=== PATIENT | female | born 1965 | race Caucasian/White ===

== ENCOUNTER 2016-09-14 05:28 | Day surgery (SDC) | payer OTHER ==
[~2016-09-14] VITALS: Ht 162.6 cm; Wt 63.0 kg
--- NOTE | ~2016-09-14 | O ---
[facility] [place] [address] OPERATIVE REPORT Name: JAYDE DAS Room #: 423-1 [facility]#: [id number] Admission: 09/14/16 Attend Phys: Jose Linn MD Discharge: Date of : 61 Report #: [id number] THIS REPORT FOR: //name// CC: Lindsay Linn DATE OF SERVICE: 09/14/[address] Jose Linn, Dr. Shannan Tariq, Dr. Lindsay Stark, Dr. Kev Baugh. PREOPERATIVE DIAGNOSES: Cholelithiasis, cholecystitis, biliary colic. POSTOPERATIVE DIAGNOSES: Cholelithiasis, cholecystitis, biliary colic. PROCEDURE: Laparoscopic cholecystectomy. SURGEON: Jose Linn M.D. UTILIZATION REVIEW NURSE: Duyen Barrios RN. ANESTHESIA: General. DESCRIPTION OF PROCEDURE: The patient was brought to the operating room and placed on operative table in the supine position. Sequential compression devices were in place for DVT prophylaxis. She was given an appropriate preoperative dose of antibiotics. The patient underwent a general endotracheal anesthesia. The abdomen was then prepped and draped in a sterile fashion. Skin and subcutaneous tissue around the umbilicus was then infiltrated with 0.5% Marcaine. An infraumbilical transverse skin incision was then performed using #11 scalpel blade. Hemostasis obtained using electrocautery. Dissection was carried down through subcutaneous tissue, the fascia, which was then grasped between 2 Kingsley clamps and incised with a curved Suero scissors. The peritoneum was entered and a pursestring suture of 0 Vicryl was then placed in the fascia. A 12 mm disposable Alyssa port was then inserted through the opening and held into place with the pursestring suture and the port balloon. Pneumoperitoneum was obtained to a level of 10-15 mmHg. Laparoscope was inserted through this port and exploration was performed, which revealed a subacutely and chronically thickened dilated gallbladder with multiple stones. An exploration of the pelvis was performed, which revealed essentially normal uterus. Both ovaries were visualized and appeared normal. The right tube had some changes from previous tubal . No real obvious endometriosis in the pelvis. Small bowel and colon that could be visualized was essentially unremarkable. Appendix [address] [address] OPERATIVE REPORT Name: JAYDE DAS Room #: 423-1 [facility]#: [id number] Admission: 09/14/16 Attend Phys: Jose Linn MD Discharge: Date of : 61 Report #: [id number] was visualized and was also normal. Liver appeared normal. After completing the exploration, 2 lateral 5 mm Surgiport as well as an upper midline 11 mm Surgiport were all inserted under direct visualization after infiltration with 0.5% Marcaine. I attempted to grasp the gallbladder, but it was so thickened and dilated, I could not place a grasper on it. I then opted to decompress the gallbladder using the needle. I aspirated approximately 120 mL of white bile. This represented a complete obstruction of the cystic duct. After the gallbladder was decompressed, it was then able to be grasped and retracted superiorly. Adhesions around the cystic duct and cystic artery were carefully dissected free using the [place] dissector. I carefully identified the cystic artery and cystic duct and the cystic common bile duct junction was clearly identified. Cystic artery was doubly clipped on each side and divided with the scissors. There was a small accessory vein. This was clipped on each side and divided with the scissors. The cystic duct was then triply clipped on the common bile duct side and doubly clipped on the gallbladder side and divided with the scissors. Gallbladder was then dissected free from the bed using the hook electrocautery. Prior to completing the dissection, the gallbladder was retracted superiorly and the bed inspected for hemostasis, which was obtained using electrocautery and found to be intact. The gallbladder was then transected and brought out through the periumbilical port. There were numerous stones within the gallbladder with a very thickened wall. Stones and gallbladder were then sent as specimen to pathology. The port was then returned to the abdomen. The area was then copiously irrigated with warm saline solution, which was suctioned free. The hemostasis was checked and found to be intact. Ports were all removed under direct visualization, hemostasis intact at each port site. Pneumoperitoneum was released and periumbilical port was then also removed under direct visualization, hemostasis intact at that port site as well. Periumbilical fascia was then closed using the 0 Vicryl pursestring suture. The upper midline fascia was then closed using a [id number]-yu-[id number] 0 Vicryl suture. Skin was then closed using interrupted vertical mattress 5-0 nylon sutures and the wound was dressed with Band-Aids. The patient was then awakened from the general endotracheal anesthesia, extubated, and taken to recovery room in good condition. Estimated blood loss was approximately 10 mL and the patient tolerated procedure well. All sponge, lap and instrument counts correct times 2. <ELECTRONICALLY SIGNED> By: Jose Linn MD 09/14/16 [id number] [id number] Jose Linn MD /nt
--- NOTE | ~2016-09-14 | S ---
[facility] [place] [address] SURGICAL PATH RPT PROCEDURE Name: SOCORRO GUILLERMO Room #: DEP [facility] M..#: [id number] Admission: 09/14/16 Date of : 61 Discharge: 09/14/16 Report #: [id number] Path Case #: [id number] PATHOLOGY REPORT COLLECTION DATE: 09/14/2016 RECEIVED DATE: 09/14/2016 SUBMITTING PHYS: Dr. Jose Linn OTHER PHYS: Dr. Shannan Tariq SPECIMEN(S) RECEIVED: A.Gallbladder * * * * * * * * * * * * FINAL DIAGNOSIS: "Gallbladder," cholecystectomy: - Chronic cholecystitis. - Cholelithiasis. (CLW:; d/t: 09/16/16) PATHOLOGIST: Lisa Martinez M.D. REPORT ELECTRONICALLY SIGNED BY: Lisa Martinez M.D. DATE/TIME: 09/16/2016 21:51 * * * * * * * * * * * * GROSS PATHOLOGY: Received in formalin labeled "Socorro Guillermo gallbladder," is a 12.2 x 3.2 x 1.8 cm, previously opened gallbladder with pink-ballesteros serosal surfaces. Opening the gallbladder reveals a velvety, pink-judd mucosa and an average wall thickness of 0.1 cm. Calculi are present displaying a ballesteros-judd, split yellow-judd, chalky appearance, and no masses are noted grossly. Train Examiner sections from the body and fundus are submitted along with the proximal margin in cassette A1. (CAA; 09/15/2016) CLINICAL HISTORY: Gallstones, cholelithiasis, cholecystitis INITIAL CPT CODE(S): A; 91098 Professional services performed by [facility] at [facility] [address], [place] [address] Technical services performed by [facility] at [address] [place] [address]. [facility] [address] [place] [address] SURGICAL PATH RPT PROCEDURE Name: SOCORRO GUILLERMO Room #: DEP [facility].#: [id number] Admission: 09/14/16 Date of : 61 Discharge: 09/14/16 Report #: [id number] Path Case #: [id number] [facility] [address] [address] PHONE: [phone] DIRECTOR: Hamzah Mcelroy M.D. * * * END OF REPORT * * *
[~2016-09-14 05:28] MED LIST: ASPIR 8181 MG PO; DULCOLAX5 MG PO; METAMUCIL PAC1 UDPKT PO; NOLVADEX20 MG PO; NORCO 5-325 TA1 EACH PO; REQUIP 0.25 M0.25 MG PO; STOOL SOFTENER100 MG PO
[2016-09-14] MEDS ORDERED: NORCO 5-325 TA1 EACH PO (10:59)
[2016-09-14 11:12] VITALS: BP 130/78
[2016-09-14 12:30] VITALS: BP 130/78
== END 2016-09-14 16:51 | disposition home or self-care (01) ==
LOC: OR 05:28 → TBA 05:29 → 4E 12:24 → OR 15:46
DX: K80.00 Calculus of gallbladder with acute cholecystitis without obstruction (principal); K80.50 Calculus of bile duct without cholangitis or cholecystitis without obstruction; Z86.718 Personal history of other venous thrombosis and embolism; G47.33 Obstructive sleep apnea (adult) (pediatric); G25.81 Restless legs syndrome
CPT/HCPCS: 10783; 50010; 50101; 50411; 50555; 50558; 51474; 51489; 52266; 53314; 56462; 56524; 56528; 56970; 62110; 62900; 70005